=== PATIENT | female | born 1935 | race Caucasian/White ===

== ENCOUNTER 2025-01-01 11:32 | Emergency (ER) | payer OTHER, MEDICARE ==
[2025-01-01 12:05] VITALS: BP 125/62; PULSE 107; RESP 28; TEMP 99; BMI 19.5
== END 2025-01-01 15:55 ==
LOC: JER 11:32
PROC: 0D20XUZ Change Feeding Device in Upper Intestinal Tract, External Approach (ICD-10-PCS; principal; 2025-01-01)
DX: K94.23 Gastrostomy malfunction (principal)
CPT/HCPCS: 74018-TC-FY; 99283-25